=== PATIENT | male | born 1985 | race Caucasian/White ===

== ENCOUNTER 2017-04-21 18:34 | Emergency (ER) | payer BC ==
[~2017-04-21] VITALS: Ht 180.3 cm; Wt 99.8 kg
[~2017-04-21 18:34] MED LIST: BACTRIM DS 8001 TA1 PO; BLEPH-10 15 ML15 ML OP; KEFLEX500 MG PO
[2017-04-21 18:43] VITALS: BP 149/83
[2017-04-21] MEDS ORDERED: CYCLOBENZAPRINE10 MG PO (19:45)
[2017-04-21] MEDS ORDERED: NAPROSYN500 MG PO (19:45)
== END 2017-04-21 22:14 | disposition home or self-care (01) ==
LOC: ED 18:34
DX: S46.911A Strain of unspecified muscle, fascia and tendon at shoulder and upper arm level, right arm, initial encounter (principal); M54.2 Cervicalgia; X58.XXXA Exposure to other specified factors, initial encounter; Y93.89 Activity, other specified; Y92.89 Other specified places as the place of occurrence of the external cause; Y99.8 Other external cause status